=== PATIENT | male | born 1995 | race Two or more races ===

== ENCOUNTER 2019-12-21 22:19 | Emergency (ER) | payer SELFPAY ==
[~2019-12-21] VITALS: Ht 190.5 cm; Wt 95.0 kg
[2019-12-21 22:39] VITALS: BP 139/97
[2019-12-21] MEDS ORDERED: LIDOCAINE HCL/EPINEPHRINE 1%-EPI 1:100,000 20 ML VIAL INFIL NR (23:20)
[2019-12-21] MEDS ORDERED: BACITRACIN ZINC OINT UDPKT TOP ONE (23:30)
[2019-12-21] MEDS ORDERED: TETANUS, DIPHTHERIA, PERTUSSIS VAC/PF 0.5ML (>7YR OLD) IM ONE (23:30)
== END 2019-12-21 23:36 | disposition left against medical advice (07) ==
LOC: ER 22:19
DX: S51.812A Laceration without foreign body of left forearm, initial encounter (principal); W01.110A Fall on same level from slipping, tripping and stumbling with subsequent striking against sharp glass, initial encounter; Y93.89 Activity, other specified; Y92.89 Other specified places as the place of occurrence of the external cause
CPT/HCPCS: 90715; 99281; J3490